=== PATIENT | female | born 1995 | race African-American/Black ===

== ENCOUNTER 2021-07-02 07:42 | Inpatient (IN) ==
[2021-07-02] MEDS ORDERED: LACTATED RINGERS 1,000 ML IV PRN (08:31)
[2021-07-02] MEDS ORDERED: ONDANSETRON 4 MG/2 ML VIAL IV PRN (08:31)
[2021-07-02 09:07] LABS: Basophils % 0.2 % (0.0-0.8); Eosinophils # 0.1 10*3/uL (0.0-0.87); Eosinophils % 0.8 % (0.00-10.9); Hematocrit 34.2 VOL% (35.7-47.0); Hemoglobin 10.8 GM/DL (12.0-16.0); Immature Granulocytes % 0.5 %; Immature Granulocytes Absolute 0.04 #; Lymphocytes # 2.2 10*3/uL (1.4-4.0); Mean Corpuscular HGB Conc 31.6 GM/DL (32-36); Mean Corpuscular Volume 88.1 FL (87-102); Mean Platelet Volume 10.9 FL (9.6-12.0); Monocytes % 6.8 % (1.7-12.7); Neutrophils % 66.7 % (38.7-73.9); Platelet Count 252 T/CUMM (130-400); Red Blood Count 3.88 MC/CUMM (3.8-5.5); Red Cell Distribution Width 15.8 % (9.3-17.3); White Blood Count 8.7 T/CUMM (4-12)
[2021-07-02] MEDS ORDERED: OXYTOCIN/LR 20 UNIT/1,000 ML BAG IV SCH (13:20)
[2021-07-02] MEDS ORDERED: CARBOPROST TROMETHAMINE 250 MCG/ML AMP IM PRN (13:43)
[2021-07-02] MEDS ORDERED: miSOPROStoL 200 MCG TABLET VAG PRN (13:43)
[2021-07-02] MEDS ORDERED: FAMOTIDINE 20 MG/2 ML VIAL IV ONE (13:46)
[2021-07-02] MEDS ORDERED: CITRIC ACID/SODIUM CITRATE 30 ML UDCUP PO ONE (13:46)
[2021-07-02] MEDS ORDERED: LACTATED RINGERS 1,000 ML IV ONE ×2 (13:46→19:21)
[2021-07-02] MEDS ORDERED: ePHEDrine 50 MG/ML VIAL IV PRN (13:46)
[2021-07-02] MEDS ORDERED: LACTATED RINGERS 250 ML IV PRN (13:50)
[2021-07-02] MEDS ORDERED: diphenhydrAMINE 50 MG/1 ML VIAL IV PRN ×2 (13:50)
[2021-07-02] MEDS ORDERED: hydrOXYzine HCL 25 MG/1 ML VIAL IM PRN (13:50)
[2021-07-02] MEDS ORDERED: PROMETHAZINE 25 MG/1 ML VIAL IM ONE (13:50)
[2021-07-02] MEDS ORDERED: NALOXONE 0.4 MG/ML VIAL IV PRN (13:50)
[2021-07-02] MEDS ORDERED: LACTATED RINGERS 1,000 ML IV SCH ×2 (14:00)
[2021-07-02] MEDS ORDERED: fentaNYL 2 MCG/ROPIV 0.2% EPID 100 ML EPIDURAL SCH (14:00)
[2021-07-02 18:06] LABS: Bilirubin,Urine Negative (Negative); Blood, Urine Negative (Negative); Glucose,Urine (UA) Negative (Negative); Ketones,Urine 5 mg/dL (Negative); Mucus,Urine Occasional /LPF (Occasional); Nitrite,Urine Negative (Negative); Protein,Urine Negative; RBC,Urine <1 /HPF (0-4); Urine Appearance CLEAR (Clear); Urine Color Straw (Yellow); Urine Specific Gravity 1.006 (1.001-1.035); Urine Urobilinogen < 2.0 EU/DL (0.2-1.0)
[2021-07-02] MEDS ORDERED: ceFAZolin 2,000 MG/50 ML DUPLEX IV ONE (18:52)
[2021-07-02] MEDS ORDERED: OXYTOCIN/LR 20 UNIT/1,000 ML BAG IV ONE ×2 (18:53→18:54)
[2021-07-02] MEDS ORDERED: TRANEXAMIC ACID 1,000 MG/10 ML VIAL ONE (18:54)
[2021-07-02] MEDS ORDERED: OXYTOCIN 10 UNIT/ML VIAL ONE (18:54)
[2021-07-02] MEDS ORDERED: miSOPROStoL 200 MCG TABLET ONE (18:54)
[2021-07-02] MEDS ORDERED: METHYLERGONOVINE 0.2 MG/1 ML AMP ONE (18:55)
[2021-07-02] MEDS ORDERED: CLINDAMYCIN INJ 900 MG/50 ML PREMIX IV ONE (18:55)
[2021-07-02] MEDS ORDERED: CARBOPROST TROMETHAMINE 250 MCG/ML AMP IM ONE (18:55)
[2021-07-02] MEDS ORDERED: ONDANSETRON 4 MG/2 ML VIAL ONE (19:21)
[2021-07-02] MEDS ORDERED: BUPIVACAINE MPF 0.5% /EPI 30 ML VIAL ONE (19:21)
[2021-07-02] MEDS ORDERED: METOCLOPRAMIDE 10 MG/2 ML VIAL ONE (19:21)
[2021-07-02] MEDS ORDERED: MIDAZOLAM 2 MG/2 ML VIAL ONE (19:25)
[2021-07-02 19:42] LABS: Cord Arterial Blood HCO3 19.5 MMOL/L
[2021-07-02] MEDS ORDERED: KETOROLAC 30 MG/1 ML VIAL ONE (19:43)
[2021-07-02 19:44] LABS: Cord Venous Blood HCO3 20.8 MMOL/L; Cord Venous Blood PCO2 45.8 MMHG
[2021-07-02] MEDS: ACETAMINOPHEN 500 MG TABLET PO PRN (23:31)
[2021-07-03] MEDS: KETOROLAC 30 MG/1 ML VIAL IV SCH ×3 (03:10→16:24)
[2021-07-03] MEDS: CLINDAMYCIN INJ 900 MG/50 ML PREMIX IV SCH ×2 (04:02→12:36)
[2021-07-03] MEDS: ACETAMINOPHEN 500 MG TABLET PO PRN ×2 (08:40→16:19)
[2021-07-03 15:23] LABS: Basophils % 0.3 % (0.0-0.8); Eosinophils % 0.4 % (0.00-10.9); Hematocrit 28.7 VOL% (35.7-47.0); Hemoglobin 9.2 GM/DL (12.0-16.0); Immature Granulocytes % 0.5 %; Immature Granulocytes Absolute 0.06 #; Lymphocytes # 1.8 10*3/uL (1.4-4.0); Lymphocytes % 15.8 % (21.3-54.2); Mean Corpuscular HGB Conc 32.1 GM/DL (32-36); Mean Corpuscular Volume 88.6 FL (87-102); Mean Platelet Volume 10.8 FL (9.6-12.0); Monocytes % 8.2 % (1.7-12.7); Neutrophils % 74.8 % (38.7-73.9); Platelet Count 217 T/CUMM (130-400); Red Blood Count 3.24 MC/CUMM (3.8-5.5); Red Cell Distribution Width 15.7 % (9.3-17.3); White Blood Count 11.4 T/CUMM (4-12)
[2021-07-03] MEDS ORDERED: RHO(D) IMMUNE GLOBULIN 300 MCG SYRINGE IM ONE (18:02)
[2021-07-03] MEDS ORDERED: oxyCODONE/ACETAMINOPHEN 5-325 MG TABLET PO PRN ×2 (19:58→19:59)
[2021-07-03] MEDS: DOCUSATE SODIUM 100 MG CAPSULE PO SCH (22:04)
[2021-07-03] MEDS: MAGNESIUM HYDROXIDE SUSP 30 ML UDCUP PO SCH (22:04)
[2021-07-03] MEDS: IBUPROFEN 800 MG TABLET PO PRN (23:19)
[2021-07-04] MEDS: IBUPROFEN 800 MG TABLET PO PRN (06:05)
[2021-07-04] MEDS ORDERED: IRON (CARBONYL)/VIT C/B12/FA TABLET PO SCH (09:00)
[2021-07-04] MEDS: DOCUSATE SODIUM 100 MG CAPSULE PO SCH (09:32)
[2021-07-04] MEDS: MAGNESIUM HYDROXIDE SUSP 30 ML UDCUP PO SCH (09:32)
[2021-07-04 10:31] VITALS: BP 121/64
== END 2021-07-04 13:40 | disposition home or self-care (01) | DRG 788 ==
LOC: N.LD 07:42 → N.OB 07-03 13:50
PROVIDERS: ADMIT Obstetrics & Gynecology; ATTEND Obstetrics & Gynecology
PROC: LDCSECT (ICD-10-PCS; 2021-07-02 18:30)